=== PATIENT | female | born 1950 | race Caucasian/White ===

== ENCOUNTER → 2020-10-26 | Outpatient (REF) | payer BC, MEDICARE, OTHER | LOC: M SFHCPLAZ 12:54 | PROVIDERS: ATTEND Internal Medicine Infectious Disease | DX: L02.211 Cutaneous abscess of abdominal wall (principal) ==

== ENCOUNTER → 2020-11-22 | Outpatient (CLI) | payer MEDICARE ==
[2020-11-22 15:57] LABS: BASO # 0.1 10^3/uL (0.0-0.2); BASO % 0.9 % (0.0-1.0); EOS # 0.2 10^3/uL (0.0-0.5); EOS % 2.4 % (0.0-3.0); HEMATOCRIT 43.5 % (36.0-47.0); HEMOGLOBIN 13.9 g/dl (12.0-15.5); LYMPH # 2.7 10^3/uL (1.5-5.0); LYMPH % 33.3 % (24.0-44.0); MEAN CORPUSCULAR HEMOGLOBIN 30.9 pg (27.0-33.0); MEAN CORPUSCULAR VOLUME 96.7 fl (80.0-96.0); MONO # 0.7 10^3/uL (0.0-0.8); MONO % 9.1 % (2.0-8.0); NEUTROPHILS # 4.3 10^3/uL (1.5-8.5); NEUTROPHILS % 53.8 % (36.0-66.0); PLATELET COUNT, AUTOMATED 306 10^3/uL (150-450)
[2020-11-22 18:09] LABS: ERYTHROCYTE SEDIMENTATION RATE 19 mm/hr (0-30)
== END ==
LOC: M PLALAB 13:25
PROVIDERS: ATTEND Internal Medicine Infectious Disease
DX: L02.211 Cutaneous abscess of abdominal wall (principal); B95.2 Enterococcus as the cause of diseases classified elsewhere
CPT/HCPCS: 36415; 85025; 85652; 86140; G0463

== ENCOUNTER → 2021-04-19 | Outpatient (REF) | payer MEDICARE | LOC: M LAB REF 16:00 | PROVIDERS: ATTEND Surgery | DX: L02.211 Cutaneous abscess of abdominal wall (principal) ==

== ENCOUNTER → 2022-03-23 | Outpatient (CLI) | payer MEDICARE | LOC: M LABSMTC 10:21 | PROVIDERS: ATTEND Surgery | DX: Z11.52 Encounter for screening for COVID-19 (principal) ==